=== PATIENT | female | born 1935 | race Caucasian/White ===

== ENCOUNTER 2017-03-03 10:56 | Outpatient (CLI) | payer OTHER ==
[~2017-03-03 10:56] MED LIST: ALEVE220 M1 PO; ARICEPT5 MG; CEFADROXIL500 MG PO; METFORMIN HCL500 MG; PERCOCET 5/3251 TAB PO; PRILOSEC10 MG; VITAMIN E100 UNI4
== END 2017-03-03 15:18 | disposition home or self-care (01) ==
LOC: RAD 501 10:56
DX: S42.225A 2-part nondisplaced fracture of surgical neck of left humerus, initial encounter for closed fracture (principal)

== ENCOUNTER 2024-01-24 10:25 | Emergency (ER) | payer OTHER ==
[~2024-01-24] VITALS: Ht 165.1 cm; Wt 76.2 kg
[~2024-01-24 10:25] MED LIST changes: +CHILDREN'S ASPI81 MG; +NAMENDA5 MG
[2024-01-24 11:56] LABS: HEMOGLOBIN 12.7 g/dL (12.0-15.00); MEAN CELL VOLUME 90.7 fL (80.00-100.00); MEAN CORPUSCULAR HEMOGLOBIN 30.4 pg (27.00-32.0); MEAN CORPUSCULAR HGB CONC 33.5 g/dl (32.0-36.0); PLATELET COUNT 182 K/uL (150-450); RED BLOOD COUNT 4.19 M/uL (4.00-6.00); RED CELL DISTRIBUTION WIDTH 13.8 % (11.5-14.5)
[2024-01-24 12:22] LABS: CALCIUM 8.7 mg/dL (8.5-10.1); GFR 52.32; POTASSIUM 3.86 mEq/L (3.5-5.1)
== END 2024-01-24 15:48 | disposition home or self-care (01) ==
LOC: ER 10:25
PROVIDERS: Emergency Medicine
DX: J10.1 Influenza due to other identified influenza virus with other respiratory manifestations (principal); G30.9 Alzheimer's disease, unspecified; F02.80 Dementia in other diseases classified elsewhere, unspecified severity, without behavioral disturbance, psychotic disturbance, mood disturbance, and anxiety; Z20.822 Contact with and (suspected) exposure to COVID-19; E11.9 Type 2 diabetes mellitus without complications; Z79.84 Long term (current) use of oral hypoglycemic drugs

== ENCOUNTER 2024-03-23 23:09 | Emergency (ER) | payer OTHER ==
[~2024-03-23] VITALS: Ht 152.4 cm; Wt 81.6 kg
[2024-03-24] MEDS ORDERED: MECLIZINE HCL 25 MG TABLET PO STA (02:35)
[2024-03-24] MEDS ORDERED: MECLIZINE HCL 25 MG TABLET PO ONE (02:39)
[2024-03-24 03:40] LABS: HEMATOCRIT 36.3 % (36.0-45.00); HEMOGLOBIN 12.1 g/dL (12.0-15.00); MEAN CELL VOLUME 91.2 fL (80.00-100.00); MEAN CORPUSCULAR HEMOGLOBIN 30.4 pg (27.00-32.0); MEAN CORPUSCULAR HGB CONC 33.3 g/dl (32.0-36.0); PLATELET COUNT 178 K/uL (150-450); RED BLOOD COUNT 3.98 M/uL (4.00-6.00); RED CELL DISTRIBUTION WIDTH 14.7 % (11.5-14.5)
[2024-03-24 03:51] LABS: CALCIUM 9.5 mg/dL (8.5-10.1); CREATININE SERUM 0.96 mg/dL (0.55-1.02); GFR 54.85; POTASSIUM 4.32 mEq/L (3.5-5.1)
== END 2024-03-24 06:51 | disposition home or self-care (01) ==
LOC: ER 23:09 → EDBD 23:25 → ER 03-24 06:51
DX: R42 Dizziness and giddiness (principal); E11.9 Type 2 diabetes mellitus without complications; Z79.84 Long term (current) use of oral hypoglycemic drugs

== ENCOUNTER → 2024-03-25 | Emergency (ER) | payer OTHER | END | disposition E | LOC: ER 14:18 → EDBD 14:23 → ER 14:23 ==